=== PATIENT | female | born 1950 | race Caucasian/White ===

== ENCOUNTER 2020-01-08 00:32 | Inpatient (IN) | payer MEDICARE, OTHER ==
[~2020-01-08] VITALS: Ht 170.2 cm; Wt 85.0 kg
[2020-01-08] MEDS ORDERED: dilTIAZem 25 MG/5 ML VIAL IV ONE ×2 (00:38→00:45)
[2020-01-08] MEDS ORDERED: AMIODARONE HCL 150 MG in D5W 5% 100 ML IV ONE (01:00)
[2020-01-08] MEDS ORDERED: AMIODARONE 450mg/250ml AE 250 ML IV SCH ×3 (01:00→12:30)
[2020-01-08] MEDS ORDERED: AMIODARONE HCL (50 MG/ ML) 3 ML VIAL IV ONE (01:02)
[2020-01-08 02:07] LABS: Basophils # (auto) 0 10 ^3/uL (0-0.2); Basophils % (auto) 0.1 % (0.0-2.0); Eosinophils # (auto) 0 10 ^3/uL (0-0.8); Hemoglobin 11.2 g/dL (12.2-16.2); Lymphocytes # (auto) 0.3 10 ^3/uL (0.4-5.4); Lymphocytes % (auto) 2.1 % (10.0-50.0); Mean Corpuscular Hemoglobin 26.4 pg (28.0-32.0); Mean Corpuscular Volume 80.1 fL (80.0-100.0); Monocytes # (auto) 0.6 10 ^3/uL (0-1.3); Monocytes % (auto) 4.5 % (0.0-12.0); Neutrophils # (auto) 12.3 10 ^3/uL (1.6-8.6); Neutrophils % (auto) 93.3 % (37.0-80.0); Platelet Count (auto) 222 10^3/uL (140-450); Red Blood Cells 4.25 10^6/uL (4.0-5.20); Red Cell Distribution Width 17.9 % (11.8-14.3); White Blood Cell 13.2 10^3/uL (4.4-10.8)
[2020-01-08] MEDS ORDERED: LORazepam 2MG/ML-1ML VIAL ONE (02:14)
[2020-01-08 02:22] LABS: INR 1.43 (0.9-1.15); Partial Thromboplastin Time 50.1 sec (23.0-31.2)
[2020-01-08 02:24] LABS: Chloride 98 mmol/L (98-107); Sodium 129 mmol/L (136-145)
[2020-01-08 02:28] LABS: Alanine Aminotransferase 24 U/L (13-56); Albumin 2.7 g/dL (3.4-5.0); Anion Gap 10 (5-15); Aspartate Aminotransferase 27 U/L (15-37); BUN/Creatinine Ratio 22.1; Blood Urea Nitrogen 38 mg/dL (7-18); Calcium 7.8 mg/dL (8.5-10.1); Carbon Dioxide 21 mmol/L (21-32); GFR African American 38 mL/min; GFR Non-African American 31 mL/min; Glucose 194 mg/dL (74-106)
[2020-01-08] MEDS ORDERED: LORazepam 2MG/ML-1ML VIAL IV ONE (02:30)
[2020-01-08 02:33] LABS: Alkaline Phosphatase 171 U/L (45-117); Bilirubin, Total 2.1 mg/dL (0.2-1.0); Total Protein 6.7 g/dL (6.4-8.2)
[2020-01-08] MEDS ORDERED: ONDANSETRON HCL 4 MG/2 ML VIAL IV PRN (04:45)
[2020-01-08] MEDS ORDERED: ACETAMINOPHEN 325 MG TAB PO PRN (04:45)
[2020-01-08] MEDS ORDERED: DOCUSATE SOD 100 MG CAP PO PRN (04:45)
[2020-01-08] MEDS ORDERED: HYDROcodone-ACET 5/325MG TAB PO PRN (04:45)
[2020-01-08] MEDS ORDERED: NITROGLYCERIN 0.4 MG SL TAB SL PRN (04:45)
[2020-01-08] MEDS: SODIUM CHLORIDE 0.9% 1,000 ML IV SCH ×2 (04:45→22:10)
[2020-01-08] MEDS ORDERED: MORPHINE SULFATE 4 MG/ML SYR/VIAL IV PRN (04:45)
[2020-01-08] MEDS ORDERED: MORPHINE SULF INJ 2 MG/ML SYRINGE 1ML IV PRN (04:45)
[2020-01-08] MEDS ORDERED: SODIUM CHLORIDE 0.9% 1,000 ML IV SCH (04:45)
[2020-01-08] MEDS ORDERED: DEXTROSE (50%) 50ML SYRG IV PRN (04:45)
[2020-01-08 07:07] LABS: Basophils # (auto) 0 10 ^3/uL (0-0.2); Basophils % (auto) 0.1 % (0.0-2.0); Eosinophils # (auto) 0 10 ^3/uL (0-0.8); Lymphocytes # (auto) 0.4 10 ^3/uL (0.4-5.4)
[2020-01-08 07:09] LABS: Hematocrit 36.5 % (36.0-46.0); Hemoglobin 11.9 g/dL (12.2-16.2); Lymphocytes % (auto) 2.7 % (10.0-50.0); Mean Corpuscular Hemoglobin 25.8 pg (28.0-32.0); Mean Corpuscular Hgb Conc. 32.4 g/dL (32.0-36.0); Mean Corpuscular Volume 79.6 fL (80.0-100.0); Monocytes # (auto) 0.7 10 ^3/uL (0-1.3); Monocytes % (auto) 5.2 % (0.0-12.0); Neutrophils # (auto) 12.5 10 ^3/uL (1.6-8.6); Platelet Count (auto) 235 10^3/uL (140-450); Red Blood Cells 4.59 10^6/uL (4.0-5.20); Red Cell Distribution Width 17.7 % (11.8-14.3); White Blood Cell 13.5 10^3/uL (4.4-10.8)
[2020-01-08 07:26] LABS: Albumin 2.6 g/dL (3.4-5.0); BUN/Creatinine Ratio 23.6; Bilirubin, Total 2.1 mg/dL (0.2-1.0); Calcium 8.2 mg/dL (8.5-10.1); Potassium 4.3 mmol/L (3.5-5.1); Total Protein 6.7 g/dL (6.4-8.2)
[2020-01-08] MEDS: ACCU-CHEK COMFORT CURVE STRIP VI SCH ×4 (07:37→22:03)
[2020-01-08] MEDS: InsuLIN REG 1unit/0.01ml Soln (100units/ml) SC SCH ×4 (09:28→22:06)
[2020-01-08] MEDS: cefTRIAXone 1GM/50ML D5W 50 ML IV SCH (09:29)
[2020-01-08] MEDS ORDERED: AMIODARONE HCL 200 MG TAB PO SCH (10:00)
[2020-01-08] MEDS: MULTIPLE VITAMIN TAB PO SCH (10:34)
[2020-01-08] MEDS: ZINC SULFATE 220mg CAP or TAB PO SCH (10:34)
[2020-01-08] MEDS: APIXABAN 5 MG TAB PO SCH ×2 (10:34→22:02)
[2020-01-08] MEDS: FAMOTIDINE 20 MG TAB PO SCH ×2 (10:34→22:02)
[2020-01-08] MEDS: ASCORBIC ACID 500 MG TAB PO SCH ×2 (10:35→22:03)
[2020-01-08] MEDS ORDERED: LORazepam 0.5 MG TAB PO PRN (10:45)
[2020-01-08] MEDS ORDERED: BECL40AE11 IN (13:50)
[2020-01-08] MEDS ORDERED: TIOTCAP IN (13:50)
[2020-01-08 15:22] VITALS: BP 128/63
[2020-01-08] MEDS ORDERED: LINA5TAB PO (15:34)
[2020-01-08] MEDS ORDERED: APIX5TAB PO (15:34)
[2020-01-08] MEDS ORDERED: POTA10TA51 PO (15:37)
[2020-01-08] MEDS ORDERED: REPA2TAB8 OR (15:37)
[2020-01-08] MEDS ORDERED: DIGO0.12 PO (15:37)
[2020-01-08] MEDS ORDERED: MET50T PO (15:37)
[2020-01-08] MEDS: ALBUTEROL SULF 2.5 MG/0.5ML(0.5%) NEB SOLN NEB SCH ×4 (15:49→21:20)
[2020-01-08] MEDS: IPRATROPIUM BROM 0.5 MG/2.5ML INH SOL NEB SCH ×4 (15:50→21:08)
[2020-01-08 16:20] VITALS: BP 128/63
[2020-01-08 17:05] VITALS: BP 122/64
[2020-01-08] MEDS ORDERED: BECLOMETHASONE 40 MCG IN PRN (18:00)
[2020-01-08] MEDS: Glucerna Carbsteady SHAKE Vanilla 8oz PO SCH (18:07)
[2020-01-08 22:00] VITALS: BP 104/63
[2020-01-08] MEDS: LINEZOLID 600MG/300ML 300 ML IV SCH (22:02)
[2020-01-09] MEDS ORDERED: DIGOXIN (250MCG/ML) 2 ML AMPULE IV ONE ×2 (01:04→02:10)
[2020-01-09] MEDS ORDERED: DIGOXIN (250MCG/ML) 2 ML AMPULE ONE ×2 (01:16→02:04)
[2020-01-09] MEDS: ALBUTEROL SULF 2.5 MG/0.5ML(0.5%) NEB SOLN NEB SCH ×4 (02:00→15:04)
[2020-01-09] MEDS: IPRATROPIUM BROM 0.5 MG/2.5ML INH SOL NEB SCH ×4 (03:56→13:05)
[2020-01-09 06:12] LABS: Basophils # (auto) 0 10 ^3/uL (0-0.2); Basophils % (auto) 0.5 % (0.0-2.0); Eosinophils # (auto) 0 10 ^3/uL (0-0.8); Eosinophils % (auto) 0.5 % (0.0-7.0); Lymphocytes # (auto) 0.3 10 ^3/uL (0.4-5.4); Neutrophils # (auto) 4.3 10 ^3/uL (1.6-8.6); Nucleated Red Blood Cells % 0.1 %; White Blood Cell 5.1 10^3/uL (4.4-10.8)
[2020-01-09 06:37] LABS: Hematocrit 33.2 % (36.0-46.0); Lymphocytes % (auto) 6.2 % (10.0-50.0); Mean Corpuscular Hemoglobin 26.1 pg (28.0-32.0); Mean Corpuscular Hgb Conc. 33.2 g/dL (32.0-36.0); Mean Corpuscular Volume 78.7 fL (80.0-100.0); Monocytes # (auto) 0.4 10 ^3/uL (0-1.3); Monocytes % (auto) 8.3 % (0.0-12.0); Neutrophils % (auto) 84.5 % (37.0-80.0); Platelet Count (auto) 166 10^3/uL (140-450); Red Blood Cells 4.21 10^6/uL (4.0-5.20); Red Cell Distribution Width 17.8 % (11.8-14.3)
[2020-01-09 06:45] LABS: Potassium 3.5 mmol/L (3.5-5.1)
[2020-01-09 06:57] VITALS: BP 104/63
[2020-01-09] MEDS: ACCU-CHEK COMFORT CURVE STRIP VI SCH ×4 (06:57→22:11)
[2020-01-09] MEDS: InsuLIN REG 1unit/0.01ml Soln (100units/ml) SC SCH ×4 (06:58→22:37)
[2020-01-09 07:25] LABS: Albumin 2.3 g/dL (3.4-5.0); BUN/Creatinine Ratio 24.1; Bilirubin, Total 1.8 mg/dL (0.2-1.0); Calcium 8.2 mg/dL (8.5-10.1); Total Protein 6.2 g/dL (6.4-8.2)
[2020-01-09 09:00] VITALS: BP 99/51
[2020-01-09] MEDS: cefTRIAXone 1GM/50ML D5W 50 ML IV SCH (09:07)
[2020-01-09] MEDS: Glucerna Carbsteady SHAKE Vanilla 8oz PO SCH ×3 (09:08→18:29)
[2020-01-09] MEDS: ASCORBIC ACID 500 MG TAB PO SCH ×2 (09:45→22:08)
[2020-01-09] MEDS: APIXABAN 5 MG TAB PO SCH ×2 (09:45→22:05)
[2020-01-09] MEDS: MULTIPLE VITAMIN TAB PO SCH (09:45)
[2020-01-09] MEDS: FAMOTIDINE 20 MG TAB PO SCH ×2 (09:45→22:06)
[2020-01-09] MEDS: ZINC SULFATE 220mg CAP or TAB PO SCH (09:45)
[2020-01-09] MEDS ORDERED: METOPROLOL TARTRATE 25 MG TAB PO ONE (10:30)
[2020-01-09] MEDS ORDERED: AMIODARONE HCL 200 MG TAB PO ONE (10:30)
[2020-01-09] MEDS: LINEZOLID 600MG/300ML 300 ML IV SCH ×2 (11:58→22:30)
[2020-01-09 12:54] VITALS: BP 105/53
[2020-01-09] MEDS ORDERED: PATIENTS OWN MEDICATION IN PRN (14:30)
[2020-01-09] MEDS ORDERED: QVAR 40MCG IN PRN (15:15)
[2020-01-09 17:00] VITALS: BP 93/50
[2020-01-09 17:09] VITALS: BP 98/45
[2020-01-09] MEDS: SODIUM CHLORIDE 0.9% 1,000 ML IV SCH (18:29)
[2020-01-09] MEDS ORDERED: IPRATROPIUM BROM 0.5 MG/2.5ML INH SOL NEB PRN (19:22)
[2020-01-09] MEDS ORDERED: ALBUTEROL SULF 2.5 MG/0.5ML(0.5%) NEB SOLN NEB PRN (19:30)
[2020-01-09 22:00] VITALS: BP 121/59
[2020-01-09] MEDS ORDERED: METOPROLOL TARTRATE 25 MG TAB PO SCH (22:00)
[2020-01-09] MEDS: AMIODARONE HCL 200 MG TAB PO SCH (22:00)
[2020-01-09] MEDS: METOPROLOL SUCCINATE XL 50 MG TAB PO SCH (22:07)
[2020-01-10 04:56] VITALS: BP 99/55
[2020-01-10 06:20] LABS: Mean Corpuscular Hemoglobin 25.5 pg (28.0-32.0); White Blood Cell 5.7 10^3/uL (4.4-10.8)
[2020-01-10 06:22] LABS: Hematocrit 34.4 % (36.0-46.0); Hemoglobin 11.1 g/dL (12.2-16.2); Mean Corpuscular Hgb Conc. 32.4 g/dL (32.0-36.0); Mean Corpuscular Volume 78.8 fL (80.0-100.0); Platelet Count (auto) 196 10^3/uL (140-450); Red Blood Cells 4.37 10^6/uL (4.0-5.20); Red Cell Distribution Width 17.6 % (11.8-14.3)
[2020-01-10] MEDS: SODIUM CHLORIDE 0.9% 1,000 ML IV SCH ×2 (06:26→23:35)
[2020-01-10] MEDS: ACCU-CHEK COMFORT CURVE STRIP VI SCH ×4 (06:30→22:22)
[2020-01-10] MEDS: InsuLIN REG 1unit/0.01ml Soln (100units/ml) SC SCH ×4 (06:35→22:29)
[2020-01-10 06:50] LABS: Basophils % (manual) 0 (0.0-2.0); Blast Cells 0; Myelocytes % 0; Promyelocytes % 0; Reactive Lymphocytes 0
[2020-01-10 06:57] LABS: Calcium 8.3 mg/dL (8.5-10.1); Potassium 3.6 mmol/L (3.5-5.1)
[2020-01-10 07:02] LABS: BUN/Creatinine Ratio 27.7
[2020-01-10] MEDS: Glucerna Carbsteady SHAKE Vanilla 8oz PO SCH ×3 (08:32→17:33)
[2020-01-10 09:00] VITALS: BP 104/63
[2020-01-10] MEDS: cefTRIAXone 1GM/50ML D5W 50 ML IV SCH (09:40)
[2020-01-10] MEDS: ZINC SULFATE 220mg CAP or TAB PO SCH (09:40)
[2020-01-10] MEDS: AMIODARONE HCL 200 MG TAB PO SCH (09:40)
[2020-01-10] MEDS: APIXABAN 5 MG TAB PO SCH ×2 (09:41→22:10)
[2020-01-10] MEDS: MULTIPLE VITAMIN TAB PO SCH (09:41)
[2020-01-10] MEDS: FAMOTIDINE 20 MG TAB PO SCH ×2 (09:41→22:10)
[2020-01-10] MEDS: ASCORBIC ACID 500 MG TAB PO SCH ×2 (09:43→22:10)
[2020-01-10] MEDS: METOPROLOL SUCCINATE XL 50 MG TAB PO SCH (09:43)
[2020-01-10 10:00] LABS: Band Neutrophils % (manual) 14; Eosinophils % (manual) 3 (0-7); Lymphocytes % (manual) 11 (10.0-50.0); Metamyelocytes % 2; Monocytes % (manual) 8 (0-12)
[2020-01-10] MEDS: LINEZOLID 600MG/300ML 300 ML IV SCH (11:24)
[2020-01-10] MEDS ORDERED: levoFLOXacin 500MG 100 ML IV ONE (11:45)
[2020-01-10 13:00] VITALS: BP 112/49
[2020-01-10 16:28] VITALS: BP 135/72
[2020-01-10 22:00] VITALS: BP 131/59
[2020-01-10] MEDS: SOTALOL HCL 80 MG TAB PO SCH (22:10)
[2020-01-11 05:00] VITALS: BP 121/64
[2020-01-11] MEDS: ACCU-CHEK COMFORT CURVE STRIP VI SCH ×4 (06:30→22:07)
[2020-01-11] MEDS: InsuLIN REG 1unit/0.01ml Soln (100units/ml) SC SCH ×4 (06:31→22:00)
[2020-01-11] MEDS: Glucerna Carbsteady SHAKE Vanilla 8oz PO SCH ×3 (08:57→17:14)
[2020-01-11] MEDS: ZINC SULFATE 220mg CAP or TAB PO SCH (08:58)
[2020-01-11] MEDS: APIXABAN 5 MG TAB PO SCH ×2 (08:59→22:07)
[2020-01-11] MEDS: ASCORBIC ACID 500 MG TAB PO SCH ×2 (08:59→22:07)
[2020-01-11] MEDS: MULTIPLE VITAMIN TAB PO SCH (08:59)
[2020-01-11] MEDS: FAMOTIDINE 20 MG TAB PO SCH ×2 (08:59→22:07)
[2020-01-11] MEDS: SOTALOL HCL 80 MG TAB PO SCH ×2 (08:59→22:00)
[2020-01-11 09:10] VITALS: BP 124/61
[2020-01-11] MEDS ORDERED: levoFLOXacin 500MG 100 ML IV SCH (10:00)
[2020-01-11 13:00] VITALS: BP 133/66
[2020-01-11] MEDS: SODIUM CHLORIDE 0.9% 1,000 ML IV SCH (16:05)
[2020-01-11 17:27] VITALS: BP 124/56
[2020-01-11 18:35] VITALS: BP 124/56
[2020-01-11 22:00] VITALS: BP 127/66
[2020-01-12 05:34] VITALS: BP 117/56
[2020-01-12] MEDS: ACCU-CHEK COMFORT CURVE STRIP VI SCH (05:50)
[2020-01-12] MEDS: InsuLIN REG 1unit/0.01ml Soln (100units/ml) SC SCH (05:51)
[2020-01-12] MEDS: Glucerna Carbsteady SHAKE Vanilla 8oz PO SCH (08:00)
[2020-01-12 08:42] VITALS: BP 137/76
[2020-01-12] MEDS: SODIUM CHLORIDE 0.9% 1,000 ML IV SCH (08:45)
[2020-01-12] MEDS ORDERED: levoFLOXacin 500 MG TAB PO SCH (10:00)
[2020-01-12] MEDS: SOTALOL HCL 80 MG TAB PO SCH (10:07)
[2020-01-12] MEDS: APIXABAN 5 MG TAB PO SCH (10:07)
[2020-01-12] MEDS: ASCORBIC ACID 500 MG TAB PO SCH (10:09)
[2020-01-12] MEDS: MULTIPLE VITAMIN TAB PO SCH (10:09)
[2020-01-12] MEDS: FAMOTIDINE 20 MG TAB PO SCH (10:09)
[2020-01-12] MEDS: ZINC SULFATE 220mg CAP or TAB PO SCH (10:10)
== END 2020-01-12 11:20 | disposition home or self-care (01) | DRG 871 ==
LOC: EDBD 00:32 → ER 00:35 → TELE 00:36 → TELE-CENTR 13:44 → TELE-WESTW 01-09 15:05
PROVIDERS: ADMIT Nurse Practitioner Family; ATTEND Family Medicine
DX: A40.9 Streptococcal sepsis, unspecified (principal); J18.9 Pneumonia, unspecified organism; N17.0 Acute kidney failure with tubular necrosis; I47.1 Supraventricular tachycardia; E87.1 Hypo-osmolality and hyponatremia; E44.0 Moderate protein-calorie malnutrition; N39.0 Urinary tract infection, site not specified; I48.92 Unspecified atrial flutter; I13.0 Hypertensive heart and chronic kidney disease with heart failure and stage 1 through stage 4 chronic kidney disease, or unspecified chronic kidney disease; J44.0 Chronic obstructive pulmonary disease with (acute) lower respiratory infection; J44.1 Chronic obstructive pulmonary disease with (acute) exacerbation; L03.115 Cellulitis of right lower limb; L03.116 Cellulitis of left lower limb; D68.69 Other thrombophilia; J45.901 Unspecified asthma with (acute) exacerbation; E11.65 Type 2 diabetes mellitus with hyperglycemia; I50.9 Heart failure, unspecified; E11.21 Type 2 diabetes mellitus with diabetic nephropathy; E11.40 Type 2 diabetes mellitus with diabetic neuropathy, unspecified; D63.8 Anemia in other chronic diseases classified elsewhere; E88.09 Other disorders of plasma-protein metabolism, not elsewhere classified; Z20.828 Contact with and (suspected) exposure to other viral communicable diseases; F41.9 Anxiety disorder, unspecified; J20.9 Acute bronchitis, unspecified; N18.9 Chronic kidney disease, unspecified; I48.0 Paroxysmal atrial fibrillation; E11.22 Type 2 diabetes mellitus with diabetic chronic kidney disease; Z79.899 Other long term (current) drug therapy; Z95.0 Presence of cardiac pacemaker; Z88.5 Allergy status to narcotic agent; Z68.29 Body mass index [BMI] 29.0-29.9, adult; Z88.0 Allergy status to penicillin; R06.03 Acute respiratory distress
CPT/HCPCS: 36415; 71045; 80048; 80053; 82140; 82962; 83036; 83605; 83880; 84443; 84484; 85007; 85025; 85027; 85379; 85610; 85730; 87040; 87077; 87086; 87186; 87426; 93005; 93306; 93971; 94640; 96365; 96367; 96368; 96375; G0378; J0696; J1815; J1956; J7060